=== PATIENT | female | born 1985 | race African-American/Black ===

== ENCOUNTER 2023-10-01 18:14 | Observation (INO) | payer OTHER ==
[2023-10-01 18:22] VITALS: BMI 23.8
[2023-10-01] MEDS: LACTATED RINGERS SOLUTION 1000 ML INFUS.BAG IV ONE (19:29)
[2023-10-01] MEDS ORDERED: ONDANSETRON 4 MG/2 ML VIAL ONE (19:31)
[2023-10-01] MEDS ORDERED: ASPIRIN 81 MG CHEWABLE TABLETS PO ONE (19:34)
[2023-10-01] MEDS: ONDANSETRON 4 MG/2 ML VIAL IVPUSH ONE (19:34)
[2023-10-01] MEDS ORDERED: CLOPIDOGREL BISULFATE 300 MG TABLET ONE (19:54)
[2023-10-01] MEDS ORDERED: MAG HYDROX/AL HYDROX/SIMETH 30 ML UNIT-DOSE CUP ONE (19:54)
[2023-10-01] MEDS ORDERED: FAMOTIDINE 20 MG/50 ML IVPB 20 MG/50 ML MG IVPB ONE (19:54)
[2023-10-01] MEDS ORDERED: ASPIRIN 81 MG CHEWABLE TABLETS ONE ×2 (19:54→20:12)
[2023-10-01] MEDS: CLOPIDOGREL BISULFATE 300 MG TABLET PO ONE (20:00)
[2023-10-01] MEDS: FAMOTIDINE 20 MG/50 ML IVPB 20 MG/50 ML MG IVPB ONE (20:00)
[2023-10-01] MEDS: MAG HYDROX/AL HYDROX/SIMETH 30 ML UNIT-DOSE CUP PO ONE (20:00)
[2023-10-01 20:10] LABS: BASO % 0.4 % (0-2.0); EOS % 3.6 % (0-4.5); HEMATOCRIT 37.3 % (32.4-45.2); HEMOGLOBIN 12.3 GM/dL (10.7-15.3); LYMPH % 32.8 % (8-40); MCH 24.8 pg (25.7-33.7); MCHC 32.9 g/dl (32.0-36.0); MEAN CELL VOLUME 75.3 fl (80-96); MEAN PLT VOLUME 8.5 fl (7.5-11.1); MONO % 14.8 % (3.8-10.2); NEUT % 48.4 % (42.8-82.8); PLATELET COUNT 235 10^3/uL (134-434); RBC 4.95 M/mm3 (3.60-5.2); RDW 13.8 % (11.6-15.6); WHITE BLOOD COUNT 4.1 K/mm3 (4.0-10.0)
[2023-10-01] MEDS: ASPIRIN 325 MG ENTERIC COATED TABLET (FP) PO ONE (20:26)
[2023-10-01] MEDS: ASPIRIN 81 MG CHEWABLE TABLETS PO ONE (20:27)
[2023-10-01 20:31] LABS: POTASSIUM 3.8 mmol/L (3.5-5.1)
[2023-10-01 20:31] LABS: INR 1.03 (0.83-1.09); PROTHROMBIN TIME (PATIENT) 11.6 SEC (9.7-13.0)
[2023-10-01 20:32] LABS: CALCIUM 9.6 mg/dL (8.5-10.1)
[2023-10-01 20:33] LABS: ALBUMIN 3.6 g/dl (3.4-5.0); BLOOD UREA NITROGEN 14.3 mg/dL (7-18)
[2023-10-01 20:34] LABS: ACTIVATED PTT 34.5 SECONDS (25.2-36.5)
[2023-10-01 20:36] LABS: CREATININE 0.6 mg/dL (0.55-1.3)
[2023-10-01 20:38] LABS: BILIRUBIN,TOTAL 0.5 mg/dL (0.2-1); TOT PROT 6.6 g/dl (6.4-8.2)
[2023-10-02] MEDS: VERAPAMIL HCL 120 MG E.R. TABLET PO SCH (10:31)
[2023-10-02] MEDS: LABETALOL HCL 100 MG TABLET (FP) PO SCH (10:33)
[2023-10-02] MEDS: METHIMAZOLE 10 MG TABLET PO SCH (15:18)
[2023-10-03 02:09] VITALS: RESP 20
[2023-10-03 07:49] LABS: POTASSIUM 3.7 mmol/L (3.5-5.1)
[2023-10-03 07:57] LABS: BLOOD UREA NITROGEN 14.2 mg/dL (7-18); CALCIUM 9.3 mg/dL (8.5-10.1)
[2023-10-03 08:01] LABS: CREATININE 0.4 mg/dL (0.55-1.3)
[2023-10-03 08:10] LABS: BASO % 0.3 % (0-2.0); EOS % 3.9 % (0-4.5); HEMOGLOBIN 10.8 GM/dL (10.7-15.3); LYMPH % 30.1 % (8-40); MCH 24.7 pg (25.7-33.7); MCHC 32.7 g/dl (32.0-36.0); MEAN CELL VOLUME 75.5 fl (80-96); MEAN PLT VOLUME 8.8 fl (7.5-11.1); MONO % 13.3 % (3.8-10.2); NEUT % 52.4 % (42.8-82.8); PLATELET COUNT 186 10^3/uL (134-434); RBC 4.37 M/mm3 (3.60-5.2); RDW 13.2 % (11.6-15.6); WHITE BLOOD COUNT 3.4 K/mm3 (4.0-10.0)
[2023-10-03] MEDS: ACETAMINOPHEN 325 MG TABLET (FP) PO PRN (14:43)
[2023-10-03 14:58] VITALS: BP 140/78; PULSE 78; TEMP 98.4
[2023-10-03] MEDS ORDERED: METHIMAZOLE 10 MG TABLET PO SCH (16:30)
== END 2023-10-03 17:58 | disposition home or self-care (01) ==
LOC: JER 18:14 → JERBED 22:48 → J4W 10-02 17:39
PROVIDERS: ADMIT Internal Medicine; ATTEND Internal Medicine
PROC: 3E033GC Introduction of Other Therapeutic Substance into Peripheral Vein, Percutaneous Approach (ICD-10-PCS; principal; 2023-10-01)
PROC: 3E0337Z Introduction of Electrolytic and Water Balance Substance into Peripheral Vein, Percutaneous Approach (ICD-10-PCS; 2023-10-01)
PROC: 3E033GC Introduction of Other Therapeutic Substance into Peripheral Vein, Percutaneous Approach (ICD-10-PCS; 2023-10-01)
DX: E05.90 Thyrotoxicosis, unspecified without thyrotoxic crisis or storm (principal); R94.31 Abnormal electrocardiogram [ECG] [EKG]; I10 Essential (primary) hypertension
CPT/HCPCS: 0241U-QW; 36415; 71045-TC-FY; 71275-TC; 80048; 80053; 83690; 84439; 84443; 84484; 84703; 85025; 85379; 85610; 85730; 93005; 93010; 96365; 96375; 99285-25; G0378; Q9967

== ENCOUNTER 2023-10-16 11:42 | Emergency (ER) | payer OTHER ==
[2023-10-16 11:48] VITALS: TEMP 98.4; BMI 23.8
[2023-10-16] MEDS: SODIUM CHLORIDE 1,000 ML IV STA (12:39)
[2023-10-16 12:46] VITALS: BP 155/89; PULSE 98; RESP 18
[2023-10-16 13:06] LABS: BASO % 0.5 % (0-2.0); EOS % 3.3 % (0-4.5); LYMPH % 27.2 % (8-40); MCH 24.4 pg (25.7-33.7); MCHC 32.5 g/dl (32.0-36.0); MEAN PLT VOLUME 8.5 fl (7.5-11.1); MONO % 8.8 % (3.8-10.2); NEUT % 60.2 % (42.8-82.8); PLATELET COUNT 250 10^3/uL (134-434); RBC 4.53 M/mm3 (3.60-5.2); RDW 13.7 % (11.6-15.6); WHITE BLOOD COUNT 3.6 K/mm3 (4.0-10.0)
[2023-10-16 13:12] LABS: POTASSIUM 3.9 mmol/L (3.5-5.1)
[2023-10-16 13:14] LABS: ALBUMIN 3.3 g/dl (3.4-5.0); BLOOD UREA NITROGEN 8.8 mg/dL (7-18); CALCIUM 9.3 mg/dL (8.5-10.1)
[2023-10-16 13:18] LABS: CREATININE 0.6 mg/dL (0.55-1.3)
[2023-10-16 13:20] LABS: BILIRUBIN,TOTAL 0.5 mg/dL (0.2-1); TOT PROT 6.2 g/dl (6.4-8.2)
[2023-10-16] MEDS ORDERED: ASPIRIN 81 MG CHEWABLE TABLETS ONE (13:41)
[2023-10-16] MEDS: ASPIRIN 81 MG CHEWABLE TABLETS PO ONE (13:44)
[2023-10-16 14:05] LABS: HIV INTERPRETATION NEGATIVE (NEGATIVE)
== END 2023-10-16 17:39 | disposition short-term general hospital (02) ==
LOC: JER 11:42
PROC: 3E0337Z Introduction of Electrolytic and Water Balance Substance into Peripheral Vein, Percutaneous Approach (ICD-10-PCS; principal; 2023-10-16)
DX: R07.89 Other chest pain (principal); R06.02 Shortness of breath; Z20.822 Contact with and (suspected) exposure to COVID-19
CPT/HCPCS: 0241U-QW; 36415; 71046-TC-FY; 80053; 84439; 84443; 84484; 85025; 86803; 87389; 93005; 93010; 99285-25